=== PATIENT | male | born 1975 | race Caucasian/White ===

== ENCOUNTER 2018-03-07 14:10 | Emergency (ER) | payer OTHER ==
[2018-03-07 14:26] VITALS: BP 129/83
--- NOTE | 2018-03-07 14:59 | RAD ---
Indication: Hyperextension injury LEFT fourth finger. Proximal and metacarpal phalangeal joint pain. Comparison: No relevant prior exams available on the [facility] PACS for comparison. Technique: 3 views LEFT fourth finger. REPORT AND IMPRESSION: #. Negative for fracture or malalignment. Soft tissue swelling most prominent at the level of the proximal interphalangeal joint.
--- NOTE | 2018-03-07 15:05 | ED ---
Upper Extremity Pain - HPI Summary HPI Summary: 42 yr old male with the complaint of left ring finger pain. Onset of pain yesterday. He was doing martial arts and hyper extended finger. He dislocated it by picture on his phone, he put it back in place and then was able to bend it , but today limited ROM at the PIP. Pain is moderate. No other complaints. He is right handed. He has been liz taping his finger. - History of Current Complaint Chief Complaint: UCUpperExtremity Stated Complaint: INJURY LEFT HAND Time Seen by Provider: 03/07/18 14:37 - Allergies/Home Medications Allergies/Adverse Reactions: Allergies Allergy/AdvReac Type Severity Reaction Status Date / Time Sulfa (Sulfonamide Allergy Unknown Verified 03/07/18 14:18 Antibiotics) Reaction Details Home Medications: Home Medications Naproxen TAB* [Naprosyn 250 mg TAB*] 500 mg BID PRN 03/07/18 [History Confirmed 03/07/18] PMH/Surg Hx/FS Hx/Imm Hx Cardiovascular History: Reports: Hx Hypertension - taken off meds - Surgical History Surgery Procedure, Year, and Place: left clavicle with metal, right knee Infectious Disease History: No Infectious Disease History: Reports: History Other Infectious Disease - HPV Denies: Traveled Outside the [place] in Last 30 Days - Family History Known Family History: Positive: Hypertension - Social History Alcohol Use: None Substance Use Type: Reports: None Smoking Status (MU): Current Every Day Smoker Type: eCigarettes Review of Systems Constitutional: Negative Positive: Other - hand injury left ring finger. All Other Systems Reviewed And Are Negative: Yes Physical Exam Triage Information Reviewed: Yes Vital Signs On Initial Exam: Initial Vitals Temp Pulse Resp BP Pulse Ox 97.6 F 76 16 129/83 98 03/07/18 14:19 03/07/18 14:19 03/07/18 14:19 03/07/18 14:19 03/07/18 14:19 Vital Signs Reviewed: Yes Appearance: Positive: Well-Appearing, No Pain Distress Skin: Positive: Warm, Skin Color Reflects Adequate Perfusion Head/Face: Positive: Normal Head/Face Inspection Eyes: Positive: EOMI ENT: Positive: Normal ENT inspection Respiratory/Lung Sounds: Positive: Other - normal effort Cardiovascular: Positive: Pulses are Symmetrical in both Upper and Lower Extremities - normal upper Abdomen Description: Negative: Distended Musculoskeletal: Positive: Other - the left hand is with STS at the PIP ring finger with limited ROM most likely due to the STS. He has intact digital nerve sensation. Profundus, superficial flexors intact. Extensors intact. Neurological: Positive: Sensory/Motor Intact, Alert, Oriented to Person Place, Time, CN Intact II-III Psychiatric: Positive: Normal - [place] Coma Scale Best Eye Response: 4 - Spontaneous Best Motor Response: 6 - Obeys Commands Best Verbal Response: 5 - Oriented Coma Scale Total: 15 Diagnostics - Vital Signs Vital Signs Temp Pulse Resp BP Pulse Ox 03/07/18 14:19 97.6 F 76 16 129/83 98 - Laboratory Lab Statement: Any lab studies that have been ordered have been reviewed, and results considered in the medical decision making process. - Radiology left ring finger Xray Interpretation: Positive (See Comments) Radiology Interpretation Completed By: Radiologist - soft tissue swelling PIP ring finger Course/Dx - Course Course Of Treatment: 42 yr old male with ring finger sprain. He can continue to liz tape the finger, and follow up with hand specialist. Referral to Dr Haywood. - Diagnoses Provider Diagnoses: Sprain of left ring finger Discharge - Sign-Out/Discharge Documenting (check all that apply): Patient Departure - Discharge Plan Condition: Good Disposition: HOME Patient Education Materials: Finger Dislocation (ED), Finger Sprain (ED) Referrals: Farrukh HERRON,Daniel Miller [Primary Care Provider] - Kishore Haywood MD [Medical Doctor] - 1 Day - Billing Disposition and Condition Condition: GOOD Disposition: Home
== END 2018-03-07 15:24 | disposition home or self-care (01) ==
LOC: UCCORT 14:10
DX: S63.615A Unspecified sprain of left ring finger, initial encounter (principal); Z88.2 Allergy status to sulfonamides; X50.9XXA Other and unspecified overexertion or strenuous movements or postures, initial encounter; Y93.75 Activity, martial arts; Y92.9 Unspecified place or not applicable; I10 Essential (primary) hypertension
CPT/HCPCS: 73140; 99211; G0463

== ENCOUNTER 2019-01-07 11:41 | Emergency (ER) | payer OTHER ==
--- NOTE | 2019-01-07 12:06 | UC ---
General HPI - HPI Summary HPI Summary: Patient cut his left hand with razor knife while working on [employer]. He states it went very deep. thumb went numb initially but is no back. Is able to move all digits. Unknown last tetanus. States he is feeling dizzy. MEds: Reviewed - History of Current Complaint Chief Complaint: UCLaceration Stated Complaint: FINGER LACERATION Time Seen by Provider: 01/07/19 12:05 Pain Intensity: 6 - Allergy/Home Medications Allergies/Adverse Reactions: Allergies Allergy/AdvReac Type Severity Reaction Status Date / Time Sulfa (Sulfonamide Allergy Unknown Verified 01/07/19 11:54 Antibiotics) Reaction Details PMH/Surg Hx/FS Hx/Imm Hx Previously Healthy: Yes - Surgical History Surgical History: Yes Surgery Procedure, Year, and Place: left clavicle with metal, right knee - Family History Known Family History: Positive: Hypertension - Social History Alcohol Use: None Substance Use Type: None Smoking Status (MU): Current Every Day Smoker Type: eCigarettes Amount Used/How Often: 2 vials/day - Immunization History Most Recent Tetanus Shot: 2013 Review of Systems All Other Systems Reviewed And Are Negative: Yes Physical Exam Triage Information Reviewed: Yes Appearance: Well-Appearing Vital Signs: Initial Vital Signs Temp 97.3 F 01/07/19 11:47 Pulse 61 01/07/19 11:47 Resp 18 01/07/19 11:47 BP 106/62 01/07/19 11:47 Pulse Ox 98 01/07/19 11:47 Vital Signs Reviewed: Yes Musculoskeletal: Positive: Other: - left hand 5 cm deep laceration extending between first and second digit, well approximated. Sensation and digit movement intact. Good radial pulse Course/Dx - Course Course Of Treatment: This is a 43 yr old who suffered a deep hand laceration to the left Spoke with [facility] Orthopedics tdap given. [place] x 1 given - here who is able to drive him Incision cleaned and wrapped Vitals - repeated - improved Dizziness improved Plan Go directly to [facility] Orthopediics Dr. Lora Ayoub's PA will see him at [address] at 2:45 Arrive early to fill out paperwork - Diagnoses Provider Diagnosis: Laceration Discharge - Sign-Out/Discharge Documenting (check all that apply): Patient Departure All imaging exams completed and their final reports reviewed: No Studies - Discharge Plan Condition: Fair Disposition: TRANS HIGHER LVL OF CARE FAC Referrals: Daniel Chadwick PA [Primary Care Provider] - Additional Instructions: Tetanus booster has been given Go directly to [facility] Orthopediics Dr. Lora Ayoub's PA will see him at [address] [place] [address] at 2:45 Arrive early to fill out paperwork Follow up instructions per their recommendation - Billing Disposition and Condition Condition: FAIR Disposition: Trans Higher Lvl of Care Fac
[2019-01-07] MEDS: Tetan/Diph/Pertus SYR(Tdap)* 0.5 ML SYR(BOOSTRIX) use SYR IM ONE (12:20)
[2019-01-07] MEDS: HYDROcodone/ACETAMIN 5-325 MG* 1 TAB PO ONE (12:26)
[2019-01-07 13:07] VITALS: BP 114/72
== END 2019-01-07 13:45 | disposition home or self-care (01) ==
LOC: UCEAST 11:41
DX: S61.012A Laceration without foreign body of left thumb without damage to nail, initial encounter (principal); F17.290 Nicotine dependence, other tobacco product, uncomplicated; W26.0XXA Contact with knife, initial encounter; Y92.9 Unspecified place or not applicable
CPT/HCPCS: 90471; 90715; 99212; G0463

== ENCOUNTER → 2019-06-16 08:50 | Day surgery (SDC) | payer OTHER ==
[~2019-06-16 08:50] MED LIST: Acetaminophen IV 1GM/100ML * 100 ML ONE; Buffered Lidocaine 1% SYRIN* 1 ML/SYRINGE INTRADERM ONE; Bupivacaine 0.25% SDV PF* 10 ML VIAL INJ ONE; Dexamethasone TAB* 4 MG ONE; Dexamethasone TAB* 4 MG PO ONE; DiMENhydriNATE IV* 50 MG/ML VIAL IV PUSH PRN; Famotidine IV* 10 MG/ML 2 ML (20 mg) IV ONE; Famotidine IV* 10 MG/ML 2 ML (20 mg) ONE; HYDROmorphone INJ1* 1 MG/ML SYRINGE IV PRN; HYDROmorphone INJ1* 1 MG/ML SYRINGE ONE; KETAMINE HCL* 50 MG/ML 10 ML VIAL ONE; Ketorolac INJ* 30 MG/ML 1 ML VIAL ONE; Lactated Ringers 1000 ML Bag* 1,000 ML IV SCH; Lidocaine 2% PF * 5 ML VIAL ONE; Midazolam* 1 MG/ML 5 ML VIAL (5 MG) ONE; Naloxone* 0.4 MG/ML 1 ML VIAL IV PRN; Ondansetron ODT TAB* 4 MG ONE; Ondansetron ODT TAB* 4 MG PO ONE; Oxycodone TAB(NF) 10 MG TAB IMMEDIATE RELEASE PO PRN; PROCHLORPERAZINE INJ 5 MG/ML 2 ML VIAL IV PRN; PROCHLORPERAZINE INJ 5 MG/ML 2 ML VIAL ONE; Propofol* 10 MG/ML 20 ML BTL ONE; Scopolamine 1.5 mg* PATCH TRANSDERM PRN; Scopolamine PATCH Remove* 1 NOTE MISC PATCH OFF ONE; ceFAZolin 2 GM in NS PREMIX(*) 2 GM/100 ML BAG IVPB ONE; fentaNYL* 50 MCG/ML 2 ML VIAL (100 MCG VIAL) IV PRN; fentaNYL* 50 MCG/ML 2 ML VIAL (100 MCG VIAL) ONE; oxyCODONE TAB* 5 MG TAB ONE; oxyCODONE/Acetamin 5/325 MG* TAB PO PRN
[2019-06-16 16:34] VITALS: BP 129/80
--- NOTE | 2019-06-16 23:55 | OP ---
DATE OF OPERATION: 06/16/19 - [facility] DATE OF .: 75 SURGEON: Isai Madsen MD [employer] ADMINISTRATOR: BRYSON Noonan. An certified registered dental assistant was needed for the procedure to aid in position of the arm and retraction. ANESTHESIOLOGIST: Dr. Patino. ANESTHESIA: General. 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 OPERATIVE PROCEDURES: 1. Right wrist scaphoid excision. 2. Right wrist 4-corner intercarpal arthrodesis with autogenous distal radius bone graft and bone graft from the scaphoid. 3. Right wrist posterior interosseous nerve neurectomy. INDICATIONS: Mr. Inman is 44 years old. He has a stage 2 SLAC wrist. It is very symptomatic. We discussed treatment options. He understands he is likely to lose some flexion. He understands prolonged recovery for this surgery. He agrees and would like to proceed. He understands the risk of nonunion. ESTIMATED BLOOD LOSS: 2 mL. COMPLICATIONS: None. FINDINGS: See above and below. DESCRIPTION OF PROCEDURE: Mr. Inman was seen in the preoperative holding area. The correct side, site, and procedures were identified. We came back to the operating room. The arm was prepped and draped in the usual fashion and a time-out was performed. The arm was exsanguinated with the Esmarch and the tourniquet was inflated to 250 mmHg. I made a dorsal midline longitudinal incision. Full thickness flaps were raised off the extensor retinaculum. The retinaculum was opened over the third dorsal compartment. The EPL tendon was transposed. The retinaculum was released radially and ulnarly via subperiosteal dissection and the extensor tendons were all retracted out of the way. I then dissected out the posterior interosseous nerve over the dorsum of the distal radius. I excised the distal 3 cm of the nerve. This was handed off as a specimen. I then made a flexed wrist and made a dorsal transverse capsulotomy and raised a distally based capsular U-flap. The flap was brought up to expose the dorsum of the scaphoid as well as the dorsum of the carpus exposing the 4 corner area. I then excised the scaphoid in piecemeal fashion until I came out in its entirety. Care was taken to preserve the articular surface on the surrounding bones. With the scaphoid fully excised, I turned my attention to the arthrodesis. He did have good cartilage on the proximal pole of the capitate. Given his age and heavy use of the wrist, I thought he would do better with 4-corner fusion. I, therefore, prepared the proximal pole of the capitate, the lunate, the triquetrum and the hamate. I prepared the capitohamate joint and the lunotriquetral joint. This was done with combination of the archana and the rongeur. I then harvested quite a bit of dorsal distal radius metaphyseal bone graft. This was packed into the fusion site. I had taken the lunate out of extension and pinned it into place with transarticular K-wire coming from the dorsal distal radius up into the lunate. I seated the capitate on to this and pinned everything with some 4.5 K-wires. I packed the graft extremely tightly into all the fusion sites so as to leave no space without bone graft. At this point, everything was looking very good. The graft was packed in tight. The joints were compressed and pinned. I took the reamer for the Integra 4-corner fusion plate and I created a bed for the fusion plate to sit in. The plate was then placed into place. One screw was placed into the lunate. I then placed another screw into the hamate. The plate was sitting very nice down into bone. I then went alternating 180 degrees to the extent possible placed multiple screws, two into the lunate, two into the capitate, and into the hamate and triquetrum as well. While placing the screws, I had placed a point of reduction clamp across from the capitate out around the triquetrum to get as much compression as possible. Once I had everything nicely secured, I went ahead and confirmed final fluoroscopic imaging. The screw lengths looked good. Direct inspection of the lunate facet and the proximal aspect of the lunate, there were no screws penetrating the articular surface of the lunate. I had a motion arc from about 40 degrees of extension, to about 50 degrees of flexion intraoperatively. Final fluoroscopic imaging did confirm the alignment. I had checked the alignment after I had everything pinned into place to make sure that my lunate was out of extension. I irrigated out the wound. I closed the dorsal capsular flap back down with some 3-0 Vicryl suture. The retinaculum was closed with 4-0 PDS suture. The skin was closed with 4-0 nylon suture. 0.25% Marcaine was infiltrated all about the operative area. The wound was dressed with Xeroform, 4x4s, sterile Webril, and then a wrist splint with anterior and posterior plaster slabs was applied. He was taken to the recovery room in stable condition. [id number]/[facility] #: [id number] TAJ
== END | disposition home or self-care (01) ==
LOC: OR 08:50
PROVIDERS: ATTEND Orthopaedic Surgery Hand Surgery
DX: M19.031 Primary osteoarthritis, right wrist (principal); F17.290 Nicotine dependence, other tobacco product, uncomplicated
CPT/HCPCS: 76000; 88305; A9270-GY; C1713; J0690; J0780; J1170; J1885; J2250; J2704; J3010; J3490; J8540